=== PATIENT | female | born 2000 | race Caucasian/White ===

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

== ENCOUNTER → 2022-07-01 | Emergency (ER) | payer OTHER ==
--- NOTE | 2022-07-01 15:47 | NUR ---
PT LWBS UNABLE TO LOCATE PT OUTSIDE OR IN WAITING ROOM
== END | disposition left against medical advice (07) ==
LOC: MED 13:43
DX: R50.9 Fever, unspecified (principal); R06.02 Shortness of breath; Z53.21 Procedure and treatment not carried out due to patient leaving prior to being seen by health care provider